=== PATIENT | female | born 1995 | race Caucasian/White ===

== ENCOUNTER 2016-09-22 06:23 | Inpatient (IN) | payer BC ==
--- NOTE | 2016-09-22 06:46 | ED ---
General Adult HPI - General Source: patient, RN notes reviewed, old records reviewed Mode of arrival: ambulatory Limitations: no limitations <Alex Pena - Last Filed: 09/22/16 06:49> <Alex Suh - Last Filed: 09/22/16 10:19> - General Chief complaint: Abdominal Pain Stated complaint: uretal obstruction Time Seen by Provider: 09/22/16 06:45 - History of Present Illness Initial comments: This is a 21-year-old female here for evaluation. Patient with a back and flank pain. Patient does have history of ureteral blockage, right sided ureteral stricture, she has follow-up with Dr. Roy. Patient has no specific fevers, no abdominal pain, no nausea vomiting. No diarrhea. No modifying factors for symptoms. No blood in her urine, able to urinate without difficulty (Alex Pena) - Related Data Home Medications Medication Instructions Recorded Confirmed HYDROcodone/APAP 7.5-325MG [[place] 1 tab PO DAILY PRN 09/22/16 09/22/16 7.5-325] Allergies Allergy/AdvReac Type Severity Reaction Status Date / Time No Known Allergies Allergy Verified 09/22/16 07:42 Review of Systems ROS Other: All systems not noted in ROS Statement are negative. <Alex Pena - Last Filed: 09/22/16 06:49> ROS Other: All systems not noted in ROS Statement are negative. <Alex Suh - Last Filed: 09/22/16 10:19> ROS Statement: Those systems with pertinent positive or pertinent negative responses have been documented in the HPI. Past Medical History Additional Past Medical History / Comment(s): uretheral stricture, spontaneous pneumo History of Any Multi-Drug Resistant Organisms: None Reported Additional Past Surgical History / Comment(s): vats Past Psychological History: No Psychological Hx Reported Smoking Status: Never smoker Past Alcohol Use History: Occasional Past Drug Use History: None Reported <Alex Pena - Last Filed: 09/22/16 06:49> General Exam Limitations: no limitations <Alex Pena - Last Filed: 09/22/16 06:49> Medical Decision Making <Alxe Pena - Last Filed: 09/22/16 06:49> - Lab Data Result diagrams: 09/22/16 08:19 09/22/16 08:19 <Alex Suh - Last Filed: 09/22/16 10:19> - Medical Decision Making Spoke with Dr. Bautista he was willing to accept the admission I admitted the patient to Dr. Roy. (Alex Suh) - Lab Data Lab Results 09/22/16 09/22/16 09/22/16 Range/Units 06:35 06:35 08:19 WBC (3.8-10.6) k/uL RBC (3.80-5.40) m/uL Hgb (11.4-16.0) gm/dL Hct (34.0-46.0) % MCV (80.0-100.0) fL MCH (25.0-35.0) pg MCHC (31.0-37.0) g/dL RDW (11.5-15.5) % Plt Count (150-450) k/uL Neutrophils % % Lymphocytes % % Monocytes % % Eosinophils % % Basophils % % Neutrophils # (1.3-7.7) k/uL Lymphocytes # (1.0-4.8) k/uL Monocytes # (0-1.0) k/uL Eosinophils # (0-0.7) k/uL Basophils # (0-0.2) k/uL Sodium 140 (137-145) mmol/L Potassium 4.2 (3.5-5.1) mmol/L Chloride 100 (98-107) mmol/L Carbon Dioxide 25 (22-30) mmol/L Anion Gap 15 mmol/L BUN 16 (7-17) mg/dL Creatinine 0.83 (0.52-1.04) mg/dL Est GFR (MDRD) Af Amer >60 (>60 ml/min/1.73 sqM) Est GFR (MDRD) Non-Af >60 (>60 ml/min/1.73 sqM) Glucose 97 (74-99) mg/dL Calcium 9.9 (8.4-10.2) mg/dL Total Bilirubin 0.9 (0.2-1.3) mg/dL AST 22 (14-36) U/L ALT 34 (9-52) U/L Alkaline Phosphatase 68 (38-126) U/L Total Protein 7.6 (6.3-8.2) g/dL Albumin 4.6 (3.5-5.0) g/dL Amylase 31 (30-110) U/L Lipase 30 (23-300) U/L Urine Color Light Yellow Urine Appearance Turbid H (Clear) Urine pH 7.5 (5.0-8.0) Ur Specific [place] 1.013 (1.001-1.035) Urine Protein 2+ H (Negative) Urine Glucose (UA) Negative (Negative) Urine Ketones 3+ H (Negative) Urine Blood Small H (Negative) Urine Nitrate Negative (Negative) Urine Bilirubin Negative (Negative) Urine Urobilinogen <2.0 (<2.0) mg/dL Ur Leukocyte Esterase Large H (Negative) Urine RBC 62 H (0-5) /hpf Urine WBC >182 H (0-5) /hpf Ur Squamous Epith Cells 3 (0-4) /hpf Urine HCG, Qual Not Detected (Not Detectd) 09/22/16 Range/Units 08:19 WBC 10.8 H (3.8-10.6) k/uL RBC 4.50 (3.80-5.40) m/uL Hgb 13.8 (11.4-16.0) gm/dL Hct 41.0 (34.0-46.0) % MCV 91.2 (80.0-100.0) fL MCH 30.6 (25.0-35.0) pg MCHC 33.5 (31.0-37.0) g/dL RDW 12.4 (11.5-15.5) % Plt Count 281 (150-450) k/uL Neutrophils % 90 % Lymphocytes % 5 % Monocytes % 4 % Eosinophils % 0 % Basophils % 0 % Neutrophils # 9.7 H (1.3-7.7) k/uL Lymphocytes # 0.5 L (1.0-4.8) k/uL Monocytes # 0.4 (0-1.0) k/uL Eosinophils # 0.0 (0-0.7) k/uL Basophils # 0.0 (0-0.2) k/uL Sodium (137-145) mmol/L Potassium (3.5-5.1) mmol/L Chloride (98-107) mmol/L Carbon Dioxide (22-30) mmol/L Anion Gap mmol/L BUN (7-17) mg/dL Creatinine (0.52-1.04) mg/dL Est GFR (MDRD) Af Amer (>60 ml/min/1.73 sqM) Est GFR (MDRD) Non-Af (>60 ml/min/1.73 sqM) Glucose (74-99) mg/dL Calcium (8.4-10.2) mg/dL Total Bilirubin (0.2-1.3) mg/dL AST (14-36) U/L ALT (9-52) U/L Alkaline Phosphatase (38-126) U/L Total Protein (6.3-8.2) g/dL Albumin (3.5-5.0) g/dL Amylase (30-110) U/L Lipase (23-300) U/L Urine Color Urine Appearance (Clear) Urine pH (5.0-8.0) Ur Specific [place] (1.001-1.035) Urine Protein (Negative) Urine Glucose (UA) (Negative) Urine Ketones (Negative) Urine Blood (Negative) Urine Nitrate (Negative) Urine Bilirubin (Negative) Urine Urobilinogen (<2.0) mg/dL Ur Leukocyte Esterase (Negative) Urine RBC (0-5) /hpf Urine WBC (0-5) /hpf Ur Squamous Epith Cells (0-4) /hpf Urine HCG, Qual (Not Detectd) Disposition <Alex Pena - Last Filed: 09/22/16 06:49> Time of Disposition: 10:19 <Alex Suh - Last Filed: 09/22/16 10:19> Clinical Impression: Hydronephrosis, Urinary tract infection Disposition: ADMITTED IP TO THIS HOSP
[2016-09-22] MEDS ORDERED: MORPHINE SULFATE 4 MG/ML SYRINGE IV STA (06:50)
[2016-09-22] MEDS ORDERED: SODIUM CHLORIDE 0.9% 1,000 ML IV STA (06:50)
[2016-09-22] MEDS ORDERED: SODIUM CHLORIDE 0.9% 500 ML IV STA (06:50)
[2016-09-22 06:58] LABS: Appearance,Urine Turbid (Clear); Bilirubin,Urine Negative (Negative); Glucose,Urine (UA) Negative (Negative); Ketones,Urine 3+ (Negative); Leukocyte Esterase,Urine Large (Negative); Nitrite,Urine Negative (Negative); PH, Urine 7.5 (5.0-8.0); Particle Count 6826; Protein,Urine 2+ (Negative); RBC,Urine 62 /hpf (0-5); Specific Gravity,Urine 1.013 (1.001-1.035); Squamous Epithelial Cell,Urine 3 /hpf (0-4); UA Billing (MACRO vs. MICRO) MICRO; Urobilinogen,Urine <2.0 mg/dL (<2.0); WBC,Urine >182 /hpf (0-5)
[2016-09-22 08:27] LABS: Basophils % (A) 0 %; CH 31.5; CHCM 34.6; Eosinophils % (A) 0 %; HDW 2.35; HGB 13.8 gm/dL (11.4-16.0); Luc # (Auto) 0.08; Luc % (Auto) 1; Lymphocytes # (A) 0.5 k/uL (1.0-4.8); Lymphocytes % (A) 5 %; MCH 30.6 pg (25.0-35.0); MCHC 33.5 g/dL (31.0-37.0); MCV 91.2 fL (80.0-100.0); Mean Platelet Volume 7.4; Monocytes # (A) 0.4 k/uL (0-1.0); Monocytes % (A) 4 %; Neutrophils # (A) 9.7 k/uL (1.3-7.7); Neutrophils % (A) 90 %; RDW 12.4 % (11.5-15.5); WBC 10.8 k/uL (3.8-10.6); WBC (Perox) 10.95
[2016-09-22 08:41] LABS: ALT 34 U/L (9-52); AST 22 U/L (14-36); Alkaline Phosphatase 68 U/L (38-126); Amylase 31 U/L (30-110); Anion Gap 15 mmol/L; Blood Urea Nitrogen 16 mg/dL (7-17); Calcium 9.9 mg/dL (8.4-10.2); Carbon Dioxide 25 mmol/L (22-30); Chloride 100 mmol/L (98-107); Glucose 97 mg/dL (74-99); Non-African American GFR(MDRD) >60 (>60 ml/min/1.73 sqM); Potassium 4.2 mmol/L (3.5-5.1); Sodium 140 mmol/L (137-145); Total Bilirubin 0.9 mg/dL (0.2-1.3); Total Protein 7.6 g/dL (6.3-8.2)
--- NOTE | 2016-09-22 09:09 | US ---
EXAMINATION TYPE: US renals and bladder DATE OF EXAM: 09/22/2016 8:49 AM COMPARISON: NONE CLINICAL HISTORY: Pain. rt flank pain EXAM MEASUREMENTS: Right Kidney: 10.9 x 4.5 x 4.8 cm Left Kidney: 12.5 x 5.6 x 4.6 cm Findings: Right Kidney: moderate/severe hydronephrosis. Medial cystic lesion= 8.0 x 7.3 x 5.7 cm Left Kidney: wnl Bladder: distended, wnl Left Jet seen: No nephrolithiasis. IMPRESSION: Moderate to severe right hydronephrosis. Largest cystic lesion involving the right kidney noted measu ring 8 cm and appears to have a simple appearance.
[2016-09-22] MEDS ORDERED: KETOROLAC 60 MG/2 ML VIAL IVP STA (10:19)
[2016-09-22] MEDS ORDERED: HYDROmorphone 1 MG/ML 1 ML SYRINGE IVP STA (10:19)
[2016-09-22] MEDS ORDERED: ONDANSETRON 4 MG/2 ML VIAL IVP STA (10:19)
[2016-09-22] MEDS ORDERED: HYDROmorphone 1 MG/ML 1 ML SYRINGE IVP PRN (10:20)
[2016-09-22] MEDS ORDERED: ONDANSETRON 4 MG/2 ML VIAL IVP PRN (10:21)
[2016-09-22] MEDS: SODIUM CHLORIDE 0.9% 1,000 ML IV ONE ×2 (10:41→22:10)
[2016-09-22] MEDS ORDERED: LEVOFLOXACIN 750MG-D5W PMX 750 MG in DEXTROSE/WATER 1 150ML.BAG IVPB SCH (16:00)
[2016-09-22] MEDS: KETOROLAC 30 MG/ML 1 ML VIAL IVP SCH (16:20)
[2016-09-22 22:26] VITALS: RESP 16
[2016-09-23] MEDS: KETOROLAC 30 MG/ML 1 ML VIAL IVP SCH ×2 (01:18→06:36)
[2016-09-23] MEDS: SODIUM CHLORIDE 0.9% 1,000 ML IV ONE (07:43)
--- NOTE | 2016-09-23 13:25 | P.DS ---
Providers Date of admission: 09/22/16 10:22 Expected date of discharge: 09/23/16 Attending physician: Ghanshyam Bautista Primary care physician: Stated None - Discharge Diagnosis(es) (1) Hydronephrosis Current Visit: Yes Status: Acute Priority: High Hospital Course: The patient was admitted with severe right flank pain. Ultrasound showed moderate to severe right hydronephrosis. She was treated with IV hydration and parenteral analgesics, along with Levaquin. Her pain improved significantly after receiving Toradol. She was comfortable at the time of discharge. She remained afebrile with stable vital signs. A preliminary urine culture has shown gram-negative bacilli. Pertinent Studies: Renal ultrasound showed moderate to severe right hydronephrosis. Patient Condition at Discharge: Good Plan - Discharge Summary New Discharge Prescriptions: Ciprofloxacin HCl [Cipro] 500 mg PO Q12HR #14 tablet Ketorolac [Toradol] 10 mg PO Q6HR #20 tab Discharge Medication List HYDROcodone/APAP 7.5-325MG [[place] 7.5-325] 1 tab PO DAILY PRN 09/22/16 [History] Ciprofloxacin HCl [Cipro] 500 mg PO Q12HR #14 tablet 09/23/16 [Rx] Ketorolac [Toradol] 10 mg PO Q6HR #20 tab 09/23/16 [Rx] Follow up Appointment(s)/Referral(s): None,Stated [Primary Care Provider] - 1-2 days Ghanshyam Bautista MD [STAFF PHYSICIAN] - 2 Weeks Activity/Diet/Wound Care/Special Instructions: Diet as tolerated. Activities as tolerated.
--- NOTE | 2016-09-23 13:25 | P.GSHP ---
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 I initially saw her in the office in 2012, and a nuclear renogram was ordered for evaluation of this condition. Unfortunately, the renogram was nondiagnostic. The patient was advised to undergo repeat renogram, but she moved to [place]. While there, she had another episode of right flank pain. She underwent imaging (ultrasound and computed tomography scan) which confirmed the presence of right hydronephrosis. She was treated with analgesics and her pain resolved. Last night, she was awakened with severe right flank pain. She took oral pain medication, and had an episode of emesis. She subsequently presented to the emergency room. An ultrasound showed moderate to severe right hydronephrosis, and she was admitted. She has received Toradol and her pain is now controlled. - Constitutional Constitutional: Denies chills, Denies fever - Genitourinary (Female) Genitourinary: Denies dysuria, Denies hematuria Past Medical History Additional Past Medical History / Comment(s): Right uretheral stricture, left spontaneous pneumothorax x 3, jaundice as . History of Any Multi-Drug Resistant Organisms: None Reported Additional Past Surgical History / Comment(s): Left vats with wedge resection. Past Anesthesia/Blood Transfusion Reactions: Postoperative Nausea & Vomiting ( PONV) Additional Past Anesthesia/Blood Transfusion Reaction / Comment(s): Slow to awaken. Past Psychological History: No Psychological Hx Reported Additional Psychological History / Comment(s): Pt resides alone. She is independent. Smoking Status: Never smoker Past Alcohol Use History: Occasional Past Drug Use History: None Reported - Past Family History Mother Family Medical History: No Reported History Father Family Medical History: No Reported History Medications and Allergies Home Medications Medication Instructions Recorded Confirmed Type HYDROcodone/APAP 7.5-325MG [[place] 1 tab PO DAILY PRN 09/22/16 09/22/16 History 7.5-325] Allergies Allergy/AdvReac Type Severity Reaction Status Date / Time No Known Allergies Allergy Verified 09/22/16 07:42 Surgical - Exam Vital Signs Temp Pulse Resp BP Pulse Ox 99.0 F 59 L 18 154/74 100 09/22/16 06:32 09/22/16 06:32 09/22/16 06:32 09/22/16 06:32 09/22/16 06:32 - General well developed, well nourished, no distress - Respiratory normal respiratory effort - Abdomen Abdomen: soft, tender (Mild right-sided tenderness), no guarding, no rigid, no rebound Results - Labs 09/22/16 08:19 09/22/16 08:19 - Imaging US - kidney/bladder: report reviewed Assessment and Plan (1) Hydronephrosis Status: Acute Plan: The patient is a 21-year-old white female who presents with right flank pain. She has had 2 prior similar episodes. She is receiving Toradol, and her pain is now controlled. I suspect that the hydronephrosis is due to UPJ obstruction. I had a detailed conversation with the patient regarding this. If her pain is intractable, she will require placement of a right ureteral stent. A right retrograde pyelogram will be performed at that time, and would likely confirm the presence of UPJ obstruction. However, if her symptoms are tolerable, it would be my preference not to place a stent but instead to obtain a Lasix renogram. This will assess the function and drainage of the right kidney. The rationale for this approach was discussed in detail with the patient, and she is agreeable to this. She will be made nothing by mouth after midnight in the event that she has intractable symptoms tomorrow morning. However, if she is feeling well overnight and tomorrow, she will likely be discharged home on oral antibiotics, pending the urine culture, as urinalysis is suggestive of a possible UTI. Time with Patient: Greater than 30
[2016-09-23 13:27] VITALS: BP 123/69; PULSE 72; TEMP 97.5
[2016-09-23 13:55] VITALS: BMI 18.4
[2016-09-23] MEDS ORDERED: LEVOFLOXACIN 750 MG TAB PO SCH (16:00)
== END 2016-09-23 13:47 | disposition home or self-care (01) | DRG 690 ==
LOC: EC 06:23 → 6PED 10:22
PROVIDERS: ADMIT Urology; ATTEND Urology
DX: N13.6 Pyonephrosis (principal)
CPT/HCPCS: 36415; 76770; 80053; 81001; 81025; 82150; 83690; 85025; 87077; 87086; 87186; 87491; 87591; 96361; 96374; 96375; 99285

== ENCOUNTER → 2016-10-15 | Outpatient (CLI) | payer BC ==
[~2016-10-15] MED LIST: FUROSEMIDE 10 MG/ML 2 ML VIAL IV ONE
--- NOTE | 2016-10-15 17:19 | NM ---
EXAMINATION TYPE: NM lasix renogram DATE OF EXAM: 10/15/2016 3:15 PM COMPARISON: NONE HISTORY: Following administration of 10.4 mCi Tc 99m MAG3 with 20mg Lasix. Immediate images post injection FINDINGS: Left: 90%. Right: 10%. Max renal flow left: 3 minutes. Max renal flow right: Abnormal curve. Satisfactory accumulation of radiotracer within both renal collecting systems. After the administrati on of Lasix, there is prompt excretion from left renal collecting system. T 1/2 left: 20 minutes. T 1/2 right: Abnormal curve IMPRESSION: 1. High-grade obstruction with abnormal renal curves on the right. Little flow within the right kidne y is identified findings are compatible with atrophy and/or obstruction. Renal curves on the right ar e abnormal. 2. Left kidney function appears normal.
== END | disposition home or self-care (01) ==
LOC: RADNMMAIN 14:05
PROVIDERS: ATTEND Physician Assistant
DX: N13.9 Obstructive and reflux uropathy, unspecified (principal); N13.30 Unspecified hydronephrosis
CPT/HCPCS: 78708; A9562; J1940

== ENCOUNTER → 2018-07-06 | Outpatient (CLI) | payer BC ==
--- NOTE | 2018-07-07 07:46 | USB ---
Reason for exam: clinical finding. History: Family history of breast cancer in grandfather at age 55. Physical Findings: Nurse Summary: firm movable nodule (nurse judith). US Breast LT Left complete breast ultrasound includes all four quadrants, the retroareolar region and axilla. Finding demonstrates no cystic or solid lesion seen. Palpable area at 9 o'clock zone B/C. Prominent underlying rib is seen. These results were verbally communicated with the patient and result sheet given to the patient on 07/06/18. ASSESSMENT: Negative, BI-RAD 1 RECOMMENDATION: Routine screening mammogram of both breasts at age 38. Manage on a clinical basis with regard to any suspicious palpable areas.
== END | disposition home or self-care (01) ==
LOC: RADUSWWP 15:38
PROVIDERS: ATTEND Family Medicine
DX: N63.20 Unspecified lump in the left breast, unspecified quadrant (principal)

== ENCOUNTER 2019-08-28 06:09 | Inpatient (IN) | payer OTHER ==
[2019-08-28] MEDS ORDERED: CARBOPROST TROMETHAMINE 250 MCG/ML 1 ML AMP IM PRN (06:22)
[2019-08-28] MEDS ORDERED: TERBUTALINE 1 MG/ML VIAL SQ PRN (06:22)
[2019-08-28] MEDS ORDERED: METHYLERGONOVINE 0.2 MG/ML 1 ML AMP IM PRN (06:22)
[2019-08-28] MEDS ORDERED: LIDOCAINE 0.5% (PF) 5 MG/ML (50 ML SDV) SQ PRN (06:22)
[2019-08-28] MEDS ORDERED: OXYTOCIN 10 UNIT/ML 1 ML VIAL IM PRN (06:22)
[2019-08-28 06:28] VITALS: RESP 16
[2019-08-28 06:28] LABS: Glucose,Whole Blood 80 mg/dL (75-99)
[2019-08-28] MEDS: LACTATED RINGERS 1,000 ML IV SCH ×3 (06:29→13:51)
[2019-08-28] MEDS ORDERED: OXYTOCIN 30 UNITS/500 ML NS 30 UNIT in SALINE 1 500ML.BAG IV SCH (06:30)
[2019-08-28 06:40] LABS: Basophils % (A) 0 %; Eosinophils # (A) 0.1 k/uL (0-0.7); Eosinophils % (A) 1 %; HCT 36.9 % (34.0-46.0); HGB 12.8 gm/dL (11.4-16.0); Lymphocytes # (A) 1.9 k/uL (1.0-4.8); Lymphocytes % (A) 23 %; MCHC 34.7 g/dL (31.0-37.0); MCV 92.1 fL (80.0-100.0); Mean Platelet Volume 10.8; Monocytes # (A) 0.4 k/uL (0-1.0); Monocytes % (A) 5 %; Neutrophils # (A) 5.6 k/uL (1.3-7.7); Neutrophils % (A) 68 %; Platelet Count 186 k/uL (150-450); RDW 12.5 % (11.5-15.5); WBC 8.2 k/uL (3.8-10.6)
--- NOTE | 2019-08-28 08:28 | P.HPOB ---
History of Present Illness H&P Date: 08/28/19 This is a 24 rolled white female 1 para 0 EDC 09/01/2019 at 39-3/7 weeks' gestation. Patient presents today for induction for elevated proteinuria and reasonably favorable multiparous cervix. Most recent 24 hour urine revealed elevated protein, patient has a history of renal disease with 1 kidney already removed. In addition she has gestational diabetes, home blood sugars have been in the normal range. She denies fluid leakage or vaginal bleeding. Fetus is been active throughout the . Blood sugar this morning 80. Past medical history is significant for spontaneous tension pneumothorax in the past. Past surgical history kidney removed 2017, thoracotomy 2008. Current medications vitamins. ALLERGIES none known. Family history significant for hypertension. 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 history is significant for elevated proteinuria followed each trimester with 24 hour urine. Blood type O positive, rubella status immune. VDRL testing, urine culture, hepatitis B surface antigen, HIV testing, gonorrhea and chlamydia cultures all negative. Estimated weight 23rd percentile. One- hour Glucola 220, three-hour GTT consistent with gestational diabetes. On exam this is a pleasant white female who is 5 foot 10 inches, 157 pounds, blood pressure 124/88, pulse 107 on admission. The general physical exam is within normal limits. Cervix is 3 cm dilated, 70% effaced, -1 station, vertex presentation. Artificial amniorrhexis reveals clear fluid. heart rate is consistent with reactive NST with a baseline in the 140s. Impression: 39-3/7 weeks, gestational diabetes with good sugar control, proteinuria, history of nephrectomy. Here for induction of labor. Plan: Continue close maternal and surveillance. Oxytocin per hospital p rotocol. Analgesic options reviewed. Anticipate normal spontaneous vaginal delivery. Review of Systems Constitutional: Reports as per HPI Past Medical History Additional Past Medical History / Comment(s): Right uretheral stricture, left spontaneous pneumothorax x 3, jaundice as . GDM 06/14/19 History of Any Multi-Drug Resistant Organisms: None Reported Additional Past Surgical History / Comment(s): Left vats with wedge resection., Right kidney removed Past Anesthesia/Blood Transfusion Reactions: Postoperative Nausea & Vomiting (PONV) Additional Past Anesthesia/Blood Transfusion Reaction / Comment(s): Slow to awaken. Past Psychological History: No Psychological Hx Reported Additional Psychological History / Comment(s): Pt resides alone. She is independent. Smoking Status: Never smoker Past Alcohol Use History: Occasional Past Drug Use History: None Reported - Past Family History Mother Family Medical History: No Reported History Father Family Medical History: No Reported History Medications and Allergies Home Medications Medication Instructions Recorded Confirmed Type Pnv No.95/Ferrous Fum/Folic AC 1 each PO DAILY 08/28/19 08/28/19 History [ Multivitamin Tablet] Allergies Allergy/AdvReac Type Severity Reaction Status Date / Time No Known Allergies Allergy Verified 08/28/19 06:22 Exam Vital Signs Temp Pulse Resp BP 08/28/19 06:24 97.8 F 101 H 16 124/88 Intake and Output 08/27/19 08/28/19 08/28/19 22:59 06:59 14:59 Other: Weight 71.214 kg See dictation under HPI please Results Result Diagrams: 08/28/19 06:30 Assessment and Plan Assessment: 39-3/7 weeks intrauterine , history of nephrectomy with proteinuria noted, gestational diabetes with good blood sugar control. Plan: Oxytocin per hospital protocol. Continue close maternal and surveillance. Anticipate normal spontaneous vaginal delivery. Time with Patient: Less than 30
[2019-08-28] MEDS ORDERED: ROPIVACAINE 100 MG, fentaNYL (PF) 200 MCG in SODIUM CHLORIDE 0.9% 76 ML EPIDURAL ONE (14:31)
[2019-08-28] MEDS ORDERED: ZOLPIDEM 5 MG TAB PO PRN (16:07)
[2019-08-28] MEDS ORDERED: BENZOCAINE/MENTHOL SPRAY 1 GM/SPRAY AEROSOL TOPICAL PRN (16:07)
[2019-08-28] MEDS ORDERED: diphenhydrAMINE 50 MG CAP PO PRN (16:07)
[2019-08-28] MEDS ORDERED: IBUPROFEN 600 MG TAB PO PRN (16:07)
[2019-08-28] MEDS ORDERED: HYDROCORTISONE 2.5% RECTAL CREAM 30 GM TUBE RECTAL PRN (16:07)
[2019-08-28] MEDS ORDERED: SIMETHICONE 80 MG CHEWABLE PO PRN (16:07)
[2019-08-28] MEDS ORDERED: ACETAMINOPHEN TAB 325 MG TAB PO PRN (16:07)
[2019-08-28] MEDS ORDERED: LANOLIN CREAM 5 GM TUBE TOPICAL PRN (16:07)
[2019-08-28] MEDS ORDERED: diphenhydrAMINE 50 MG/ML 1 ML VIAL IVP PRN ×2 (16:07)
[2019-08-28] MEDS ORDERED: diphenhydrAMINE 25 MG CAP PO PRN (16:07)
[2019-08-28] MEDS ORDERED: WITCH HAZEL 1 EACH MED..PAD TOPICAL PRN (16:07)
--- NOTE | 2019-08-28 16:07 | P.PROBDLV ---
Vaginal Delivery Note - . Vaginal Delivery Note: This is a 24 rolled white female 1 para 0 EDC 09/01/2019 at 39-3/7 weeks' gestation. Patient presented for induction for a history of nephrectomy, and increasing proteinuria with reasonably favorable cervix. is remarkable for gestational diabetes, diet controlled, blood sugar on admission 80. [place] strep cultures negative. Rubella status immune. Please see admitting H&P for details. Patient patient was 2-3 cm dilated, 70% effaced, -1 station, soft, anterior. Artificial amniorrhexis revealed clear fluid. Oxytocin was started and titrated per hospital protocol. She progressed well through the first stage of labor and requested an epidural which was placed. She became completely dilated at 1514 hours and began the second stage of labor at that time. The perineal body was prepped and draped in usual sterile fashion. Excellent maternal expulsive effort was employed. Infant's head delivered occiput anterior and she restituted accordingly. There was no nuchal cord noted. The left or anterior shoulder was delivered from underneath the pubic symphysis at which time the oropharynx, nasopharynx, and external nares were all bulb suctioned. Patient was officially delivered of a liveborn female at 15 47 hours. Umbilical cord was doubly clamped and ligated, she was handed to waiting nurses for evaluation where scores of 9 and 9 at one and 5 minutes respectively were given. Placenta delivered spontaneously, it was inspected and noted to be intact with trivascular cord at 1550 hours. Uterus is massaged. It is firm and in the midline, 16-18 week size. Inspection of the cervix, vagina, perineum, periurethral, and perirectal areas revealed a small first-degree perineal laceration on the anterior aspect of both labia minora. These are each repaired with a single [id number] suture of 3-0 Vicryl suture. weighs 2882 g or 6 lbs. 3 oz. The patient and her family are allowed to begin the bonding experience in the LDR.
[2019-08-28] MEDS ORDERED: OXYTOCIN 20 UNITS/1000 ML NS 1,000 ML IV SCH (16:15)
[2019-08-28] MEDS: SENNOSIDES-DOCUSATE SODIUM 1 EACH TAB PO SCH (19:58)
[2019-08-29 06:16] LABS: Basophils % (A) 0 %; Eosinophils # (A) 0.1 k/uL (0-0.7); Eosinophils % (A) 1 %; HCT 33.7 % (34.0-46.0); HGB 11.5 gm/dL (11.4-16.0); Lymphocytes # (A) 1.4 k/uL (1.0-4.8); Lymphocytes % (A) 15 %; MCH 31.9 pg (25.0-35.0); MCHC 34.1 g/dL (31.0-37.0); MCV 93.7 fL (80.0-100.0); Monocytes # (A) 0.6 k/uL (0-1.0); Monocytes % (A) 6 %; Neutrophils # (A) 7.1 k/uL (1.3-7.7); Neutrophils % (A) 76 %; Platelet Count 169 k/uL (150-450); RBC 3.59 m/uL (3.80-5.40); RDW 12.5 % (11.5-15.5); WBC 9.4 k/uL (3.8-10.6)
--- NOTE | 2019-08-29 07:17 | P.DS ---
Providers Date of admission: 08/28/19 06:09 Expected date of discharge: 08/29/19 Attending physician: Bridgett Brink Primary care physician: Stated None Hospital Course: This is a 24 rolled white female 1 para 0 EDC 09/01/2019 at 39-3/7 weeks' gestation. Patient presented for induction for increasing proteinuria, nephrectomy performed 2 years ago. otherwise unremarkable, rubella status immune, blood type O+, group B strep cultures negative. Please see dictated history and physical for details. is also remarkable for gestational diabetes, excellent blood sugar control on diet, admitting blood sugar 80. Patient received an epidural per her request. Oxytocin was started and titrated per hospital protocol. She went on to swiftly deliver a liveborn female with scores of 9 and 9 at one and 5 minutes respectively. Infant weighed 6 lbs. 3 oz. or 2882 g. There were 2 small first-degree lacerations on either labia minora that were easily repaired with [id number] sutures. Estimated blood loss 300 mL's. Please see dictated delivery note for details. This morning the patient is doing well. She is voiding, ambulating and passing flatus without difficulty. Vital signs are stable and she is afebrile. Fundus is firm and in the midline, symmetric and 18 week size. Extremities are negative for edema. Breasts are not engorged, breast-feeding is going well. I have given her prescription for a double electric breast pump per her request. Patient is judged to be in very good condition for discharge home. She will follow-up in the office with me in 6 weeks. I reminded her no intercourse, tampons or douching. She will use [id number] acetaminophen, 1000 mg every 4-6 hours as needed. She will call with any fevers shakes or chills, foul smelling or copious lochia, with the passage of large blood clots. She will call with any pain not alleviated by [id number] products. We have briefly discussed options for contraception and we will review this further in the office at the 6 week visit. Patient Condition at Discharge: Good Plan - Discharge Summary Discharge Rx Participant: No New Discharge Prescriptions: No Action Pnv No.95/Ferrous Fum/Folic AC [ Multivitamin Tablet] 1 each PO DAILY Discharge Medication List Pnv No.95/Ferrous Fum/Folic AC [ Multivitamin Tablet] 1 each PO DAILY 08/28/19 [History] Follow up Appointment(s)/Referral(s): Bridgett Brink MD [STAFF PHYSICIAN] - 6 Weeks Discharge Disposition: HOME SELF-CARE
[2019-08-29] MEDS: SENNOSIDES-DOCUSATE SODIUM 1 EACH TAB PO SCH (07:55)
[2019-08-29 16:17] VITALS: BP 129/79; PULSE 74; TEMP 98.2
== END 2019-08-29 17:30 | disposition home or self-care (01) | DRG 807 ==
LOC: 4FBP 06:09
PROVIDERS: ADMIT Obstetrics & Gynecology; ATTEND Obstetrics & Gynecology
PROC: 00HU33Z Insertion of Infusion Device into Spinal Canal, Percutaneous Approach (ICD-10-PCS; principal; 2019-08-28)
PROC: 0HQ9XZZ Repair Perineum Skin, External Approach (ICD-10-PCS; principal; 2019-08-28)
PROC: 3E0R3BZ Introduction of Anesthetic Agent into Spinal Canal, Percutaneous Approach (ICD-10-PCS; principal; 2019-08-28)
PROC: 10E0XZZ Delivery of Products of Conception, External Approach (ICD-10-PCS; principal; 2019-08-28)
DX: O24.420 Gestational diabetes mellitus in childbirth, diet controlled (principal); Z37.0 Single live birth; O70.0 First degree perineal laceration during delivery; O12.14 Gestational proteinuria, complicating childbirth; Z3A.39 39 weeks gestation of pregnancy; Z82.49 Family history of ischemic heart disease and other diseases of the circulatory system; Z90.5 Acquired absence of kidney
CPT/HCPCS: 85025; 86850; 86900; 86901

== ENCOUNTER 2021-01-03 09:15 | Outpatient (CLI) | payer OTHER ==
[2021-01-03 09:29] VITALS: BP 123/75; PULSE 91; RESP 14
[2021-01-03 10:02] VITALS: TEMP 96.6
== END 2021-01-03 10:03 | disposition home or self-care (01) ==
LOC: FBPOP 09:15
PROVIDERS: ATTEND Obstetrics & Gynecology
DX: O24.419 Gestational diabetes mellitus in pregnancy, unspecified control (principal); Z3A.00 Weeks of gestation of pregnancy not specified
CPT/HCPCS: 59025

== ENCOUNTER 2021-01-28 06:10 | Inpatient (IN) | payer OTHER ==
[2021-01-28] MEDS ORDERED: OXYTOCIN 10 UNIT/ML 1 ML VIAL IM PRN (06:31)
[2021-01-28] MEDS ORDERED: TERBUTALINE 1 MG/ML VIAL SQ PRN (06:31)
[2021-01-28] MEDS ORDERED: LIDOCAINE 0.5% (PF) 5 MG/ML (50 ML SDV) SQ PRN (06:31)
[2021-01-28] MEDS ORDERED: METHYLERGONOVINE 0.2 MG/ML 1 ML AMP IM PRN (06:31)
[2021-01-28] MEDS: LACTATED RINGERS 1,000 ML IV SCH ×3 (06:31→10:53)
[2021-01-28] MEDS ORDERED: CARBOPROST TROMETHAMINE 250 MCG/ML 1 ML AMP IM PRN (06:31)
[2021-01-28] MEDS ORDERED: OXYTOCIN 30 UNITS/500 ML NS 30 UNIT in SALINE 1 500ML.BAG IV SCH (06:45)
[2021-01-28 06:53] LABS: Basophils % (A) 0 %; Eosinophils # (A) 0.1 k/uL (0-0.7); Eosinophils % (A) 1 %; HCT 35.7 % (34.0-46.0); HGB 12.3 gm/dL (11.4-16.0); Lymphocytes # (A) 2.6 k/uL (1.0-4.8); Lymphocytes % (A) 35 %; MCH 31.2 pg (25.0-35.0); MCHC 34.4 g/dL (31.0-37.0); MCV 90.6 fL (80.0-100.0); Mean Platelet Volume 10.5; Monocytes # (A) 0.4 k/uL (0-1.0); Monocytes % (A) 5 %; Neutrophils # (A) 4.2 k/uL (1.3-7.7); Neutrophils % (A) 56 %; Platelet Count 163 k/uL (150-450); RBC 3.94 m/uL (3.80-5.40); RDW 12.3 % (11.5-15.5); WBC 7.4 k/uL (3.8-10.6)
[2021-01-28] MEDS ORDERED: PENICILLIN G POTASSIUM 5,000,000 UNIT in DEXTROSE 5% IN WATER 100 ML IVPB ONE ×2 (07:00)
--- NOTE | 2021-01-28 07:15 | P.HPOB ---
History of Present Illness H&P Date: 01/28/21 Chief Complaint: For elective induction of labor with favorable multiparous cervix This is a 26-year-old female 3 para 1011 EDC 02/04/2021 at 39 weeks gestation who presents for induction of labor with favorable multiparous cervix. She denies vaginal bleeding or fluid leakage. Fetus is been active throughout the . Past surgical history significant for wisdom teeth extraction, nephrectomy 2018, thoracotomy 2008. Current medications vitamins daily. ALLERGIES none known. Family history significant for hypertension. Past medical history is significant for spontaneous pneumothorax in 2008. 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 Obstetric history blood type is O+, rubella status immune. Urine culture, hepatitis B surface antigen, HIV testing, gonorrhea and chlamydia cultures all negative. Gestational diabetes is noted. Group B strep cultures positive. On exam patient is 5 foot 9 inches, 160 pounds, vital signs are stable and she is afebrile. General physical exam is within normal limits. Cervix is 4 cm dilated, 80% effaced, -1 station, vertex presentation. Artificial amniorrhexis reveals clear fluid. heart rate is consistent with reactive NST. Impression: 39 week intrauterine , here for induction of labor, all signs reassuring. Plan: Analgesic options reviewed. Oxytocin per hospital protocol. Penicillin G per hospital protocol. Continue close maternal and surveillance. Anticipate normal spontaneous vaginal delivery. Review of Systems Constitutional: Reports as per HPI Past Medical History Additional Past Medical History / Comment(s): Right uretheral stricture, left spontaneous pneumothorax x 3, hx GDM History of Any Multi-Drug Resistant Organisms: None Reported Additional Past Surgical History / Comment(s): Left vats with wedge resection., Right kidney removed Past Anesthesia/Blood Transfusion Reactions: Postoperative Nausea & Vomiting (PONV) Additional Past Anesthesia/Blood Transfusion Reaction / Comment(s): Slow to awaken. Past Psychological History: No Psychological Hx Reported Smoking Status: Never smoker Past Drug Use History: None Reported - Past Family History Mother Family Medical History: No Reported History Father Family Medical History: No Reported History Medications and Allergies Home Medications Medication Instructions Recorded Confirmed Type Pnv No.95/Ferrous Fum/Folic AC 1 each PO DAILY 08/28/19 01/28/21 History [ Multivitamin Tablet] Allergies Allergy/AdvReac Type Severity Reaction Status Date / Time No Known Allergies Allergy Verified 01/28/21 06:30 Exam Vital Signs Temp Pulse Resp BP Pulse Ox 01/28/21 06:48 97.6 F 98 18 136/89 99 Intake and Output 01/27/21 01/28/21 01/28/21 22:59 06:59 14:59 Other: Weight 72.575 kg See dictation under HPI please Results Result Diagrams: 01/28/21 06:25 Assessment and Plan Assessment: 39 week intrauterine , gestational diabetes, positive group B strep cultures, here for induction of labor, favorable cervix, all signs reassuring. Plan: Oxytocin per hospital protocol. Penicillin G per hospital protocol. Close maternal and surveillance. Anticipate normal spontaneous vaginal delivery. Time with Patient: Less than 30
[2021-01-28 07:16] LABS: Glucose,Whole Blood 77 mg/dL (75-99)
[2021-01-28] MEDS ORDERED: fentaNYL (PF) 50 MCG/ML 5 ML AMP ONE (10:29)
[2021-01-28] MEDS ORDERED: SODIUM CHLORIDE 0.9% 100 ML BAG ONE (10:29)
[2021-01-28] MEDS ORDERED: ROPIVACAINE 5MG/ML 20ML VIAL ONE (10:29)
[2021-01-28] MEDS ORDERED: PENICILLIN G POTASSIUM 2,500,000 UNIT in DEXTROSE 5% IN WATER 100 ML IVPB SCH ×2 (11:00)
[2021-01-28] MEDS ORDERED: HYDROCORTISONE 2.5% RECTAL CREAM 30 GM TUBE RECTAL PRN (12:45)
[2021-01-28] MEDS ORDERED: ZOLPIDEM 5 MG TAB PO PRN (12:45)
[2021-01-28] MEDS ORDERED: diphenhydrAMINE 50 MG CAP PO PRN (12:45)
[2021-01-28] MEDS ORDERED: LANOLIN CREAM 5 GM TUBE TOPICAL PRN (12:45)
[2021-01-28] MEDS ORDERED: BENZOCAINE/MENTHOL SPRAY 1 GM/SPRAY AEROSOL TOPICAL PRN (12:45)
[2021-01-28] MEDS ORDERED: diphenhydrAMINE 50 MG/ML 1 ML VIAL IVP PRN ×2 (12:45)
[2021-01-28] MEDS ORDERED: SIMETHICONE 80 MG CHEWABLE PO PRN (12:45)
[2021-01-28] MEDS ORDERED: diphenhydrAMINE 25 MG CAP PO PRN (12:45)
[2021-01-28] MEDS ORDERED: ACETAMINOPHEN TAB 325 MG TAB PO PRN (12:45)
--- NOTE | 2021-01-28 12:45 | P.PROBDLV ---
Vaginal Delivery Note - . Vaginal Delivery Note: This is a 26-year-old female 3 para 1011 EDC 02/04/2021 at 39 weeks gestation. Patient presented this morning for induction of labor with favorable multiparous cervix. Positive group B strep cultures, 2 doses of penicillin received. Rubella status immune, blood type O positive, blood sent to the lab after delivery. Please see dictated history and physical for details. Artificial amniorrhexis revealed clear fluid. Oxytocin was started and titrated per hospital protocol. As noted above, 2 doses of penicillin were given per protocol. Epidural was requested and placed without difficulties. Patient progressed well to the first stage of labor and became completely dilated at 1213 hours. The perineal body was prepped and draped in usual sterile fashion. She began the second stage of labor at that time. With excellent maternal expulsive efforts the infant's head delivered occiput anterior and he restituted accordingly. The left or anterior shoulder was easily delivered from underneath the pubic symphysis at which time the oropharynx, nasopharynx, and external nares were all bulb suctioned. Patient was officially delivered of a liveborn male at 1221 hours. Umbilical cord was doubly clamped and ligated, he was handed to waiting nurses for evaluation where scores of 9 and 10 at one and 5 minutes respectively were given. Cord blood was sent to the lab for O+ blood type. Placenta delivered spontaneously with active management, it was inspected and noted to be intact with trivascular cord at 1224 hours. At this time careful inspection of the cervix, vagina, perineum, periurethral, and perirectal areas revealed a first-degree laceration at 6:00 along with a first-degree periurethral laceration. Both were injected with 1% lidocaine and repaired easily with 3-0 repeat suture. Good reapproximation was noted. weighed 7 lbs. 5 oz. or 3315 g. Total estimated blood loss 250 mL's. Patient is requesting circumcision for her son.
[2021-01-28] MEDS: IBUPROFEN 600 MG TAB PO SCH ×2 (13:11→21:37)
[2021-01-28] MEDS: SENNOSIDES-DOCUSATE SODIUM 1 EACH TAB PO SCH (21:37)
[2021-01-29] MEDS: IBUPROFEN 600 MG TAB PO SCH ×3 (00:46→07:45)
[2021-01-29 06:50] LABS: Basophils % (A) 0 %; Eosinophils # (A) 0.1 k/uL (0-0.7); Eosinophils % (A) 1 %; HCT 32.4 % (34.0-46.0); HGB 11.3 gm/dL (11.4-16.0); Lymphocytes # (A) 2.4 k/uL (1.0-4.8); Lymphocytes % (A) 29 %; MCV 91.3 fL (80.0-100.0); Mean Platelet Volume 11.1; Monocytes # (A) 0.4 k/uL (0-1.0); Monocytes % (A) 5 %; Neutrophils # (A) 5.4 k/uL (1.3-7.7); Neutrophils % (A) 64 %; Platelet Count 135 k/uL (150-450); RBC 3.55 m/uL (3.80-5.40); RDW 12.4 % (11.5-15.5); WBC 8.4 k/uL (3.8-10.6)
[2021-01-29] MEDS: SENNOSIDES-DOCUSATE SODIUM 1 EACH TAB PO SCH (07:45)
[2021-01-29 07:58] VITALS: BP 105/61; PULSE 80; RESP 16; TEMP 98
--- NOTE | 2021-01-29 09:12 | P.DS ---
Providers Date of admission: 01/28/21 06:10 Expected date of discharge: 01/29/21 Attending physician: Bridgett Brink Primary care physician: Stated None Hospital Course: This is a 26-year-old female 3 para 1011 EDC 02/04/2021 at 39 weeks gestation. Patient presented yesterday for induction of labor with favorable multiparous cervix, rubella status immune, blood type O positive, group B strep cultures positive. Please see dictated history and physical for details. Oxytocin was started and titrated per protocol. Penicillin G was given 2 doses per protocol. Patient went on to swiftly deliver vaginally a liveborn male with scores of 9 and 10 at one and 5 minutes respectively. He weighed 3315 g or 7 lbs. 5 oz. There was a small first-degree perineal laceration easily repaired. Estimated blood loss 250 mL's. Please see my dictated delivery note for details. This morning the patient is doing very well. She is voiding, ambulating, passing flatus without difficulty. Vital signs are stable and she is midline, symmetric and 18 week size. Extremities are negative for edema. [place] circumcision has been performed and he is doing well also. Patient is judged to be in excellent condition for discharge home. She will follow-up with me in the office in 6 weeks. I have reminded her no intercourse, tampons or douching. She will use ripp-[id number] extra strength Tylenol as needed for pain. A breast pump has been written and field. Patient will call with any fevers shakes or chills, foul smelling or copious lochia, with the passage of large blood clots, with any pain not alleviated by over-the- counter products, or indeed with any concerns. Assessment: Doing very well day #1 Patient Condition at Discharge: Good Plan - Discharge Summary Discharge Rx Participant: No New Discharge Prescriptions: No Action Pnv No.95/Ferrous Fum/Folic AC [ Multivitamin Tablet] 1 each PO DAILY Discharge Medication List Pnv No.95/Ferrous Fum/Folic AC [ Multivitamin Tablet] 1 each PO DAILY 08/28/19 [History] Follow up Appointment(s)/Referral(s): Bridgett Brink MD [STAFF PHYSICIAN] - 6 Weeks Discharge Disposition: HOME SELF-CARE
== END 2021-01-29 13:30 | disposition home or self-care (01) | DRG 807 ==
LOC: 4FBP 06:10
PROVIDERS: ADMIT Obstetrics & Gynecology; ATTEND Obstetrics & Gynecology
PROC: 10E0XZZ Delivery of Products of Conception, External Approach (ICD-10-PCS; principal; 2021-01-28)
PROC: 0HQ9XZZ Repair Perineum Skin, External Approach (ICD-10-PCS; 2021-01-28)
DX: O24.429 Gestational diabetes mellitus in childbirth, unspecified control (principal); Z37.0 Single live birth; O70.0 First degree perineal laceration during delivery; Z3A.39 39 weeks gestation of pregnancy; Z82.49 Family history of ischemic heart disease and other diseases of the circulatory system; Z90.5 Acquired absence of kidney
CPT/HCPCS: 85025; 86850; 86900; 86901

== ENCOUNTER 2022-11-19 09:24 | Inpatient (IN) | payer OTHER ==
[2022-11-19] MEDS ORDERED: LIDOCAINE 0.5% (PF) 5 MG/ML (50 ML SDV) SQ PRN (09:40)
[2022-11-19] MEDS ORDERED: METHYLERGONOVINE 0.2 MG/ML 1 ML AMP IM PRN (09:40)
[2022-11-19] MEDS ORDERED: miSOPROStoL 200 MCG TAB PO PRN (09:40)
[2022-11-19] MEDS ORDERED: OXYTOCIN 10 UNIT/ML 1 ML VIAL IM PRN (09:40)
[2022-11-19] MEDS ORDERED: TERBUTALINE 1 MG/ML VIAL SQ PRN (09:40)
[2022-11-19] MEDS ORDERED: CARBOPROST TROMETHAMINE 250 MCG/ML 1 ML AMP IM PRN (09:40)
[2022-11-19] MEDS ORDERED: TRANEXAMIC ACID IN NACL,ISO-OS 1,000 MG in EMPTY BAG 1 BAG IV PRN (09:40)
[2022-11-19] MEDS ORDERED: OXYTOCIN 30 UNITS/500 ML NS 30 UNIT in SALINE 1 500ML.BAG IV SCH ×2 (09:45→20:15)
[2022-11-19] MEDS: LACTATED RINGERS 1,000 ML IV SCH ×2 (10:02→13:07)
[2022-11-19] MEDS ORDERED: CALCIUM CARBONATE 500 MG CHEWABLE PO PRN (10:26)
[2022-11-19 10:32] LABS: Basophils % (A) 0 %; Eosinophils # (A) 0.1 k/uL (0-0.7); Eosinophils % (A) 1 %; HCT 37.5 % (34.0-46.0); HGB 12.4 gm/dL (11.4-16.0); Lymphocytes # (A) 1.7 k/uL (1.0-4.8); Lymphocytes % (A) 26 %; MCH 29.6 pg (25.0-35.0); MCHC 33.1 g/dL (31.0-37.0); MCV 89.5 fL (80.0-100.0); Mean Platelet Volume 10.5; Monocytes # (A) 0.3 k/uL (0-1.0); Monocytes % (A) 5 %; Neutrophils # (A) 4.4 k/uL (1.3-7.7); Neutrophils % (A) 67 %; Platelet Count 168 k/uL (150-450); RDW 12.3 % (11.5-15.5); WBC 6.7 k/uL (3.8-10.6)
--- NOTE | 2022-11-19 10:33 | P.HPOB ---
History of Present Illness H&P Date: 11/19/22 Chief Complaint: tachycardia noted in the office This is a 27-year-old female 4 para 2012 EDC 11/26/2022 at 39 weeks gestation. Patient was in the office this morning for her routine obstetrical visit, on the NST for gestational diabetes. Blood sugar this morning 78. After 30-40 minutes tachycardia with sustained in the 180s with no variability. Patient was brought to the hospital for induction of labor with favorable multiparous cervix. Past medical history is significant for gestational diabetes and spontaneous tension pneumothorax in 2008. Past surgical history right nephrectomy 2017, thoracotomy 2008. Current medications vitamins daily, baby aspirin daily. ALLERGIES none known. Family history significant for hypertension. Obstetric history normal spontaneous vaginal deliveries 2, unremarkable area she had a missed AB not requiring surgery. Social history patient has never been a smoker, she is , she denies tobacco alcohol or drug use. history is significant for blood type O+, rubella status immune. VDRL testing, urine culture, gonorrhea and chlamydia cultures, HIV testing, hepatitis B surface antigen all negative. Three-hour GTT consistent with gestational diabetes. Group B strep cultures negative. On exam patient is 5 foot 9 inches, 156 pounds, blood pressure 140/91 on admission. The general physical exam is within normal limits. Cervix is 5 cm dilated, 80% effaced, -1 station, vertex presentation. Artificial amniorrhexis reveals clear fluid. heart tones here in the 150s baseline with accelerations up to the 180s, overall excellent variability. Plan: 39 week intrauterine , tachycardia in the office, nonsustained. Clear fluid. All signs otherwise reassuring. Gestational diabetes with blood sugar this morning 78. Plan: Oxytocin per hospital protocol. Close maternal and surveillance. Analgesic options reviewed. Anticipate normal spontaneous vaginal delivery. Review of Systems Constitutional: Reports as per HPI Past Medical History Additional Past Medical History / Comment(s): Right uretheral stricture, left spontaneous pneumothorax x 3, hx GDM History of Any Multi-Drug Resistant Organisms: None Reported Additional Past Surgical History / Comment(s): Left vats with wedge resection., Right kidney removed Past Anesthesia/Blood Transfusion Reactions: Postoperative Nausea & Vomiting (PONV) Additional Past Anesthesia/Blood Transfusion Reaction / Comment(s): Slow to awaken. Past Psychological History: No Psychological Hx Reported Smoking Status: Never smoker Past Drug Use History: None Reported - Past Family History Mother Family Medical History: No Reported History Father Family Medical History: No Reported History Medications and Allergies Home Medications Medication Instructions Recorded Confirmed Type Pnv No.95/Ferrous Fum/Folic AC 1 each PO DAILY 08/28/19 11/19/22 History [ Multivitamin Tablet] Allergies Allergy/AdvReac Type Severity Reaction Status Date / Time No Known Allergies Allergy Verified 11/19/22 09:39 Exam Intake and Output 11/18/22 11/19/22 11/19/22 22:59 06:59 14:59 Other: Weight 70.76 kg Assessment and Plan Assessment: 39 week intrauterine , gestational diabetes, tachycardia in the office, heart tones reassuring at this time. Plan: Oxytocin per hospital protocol. Continue close maternal and surveillance. Analgesic options reviewed. Anticipate normal spontaneous vaginal delivery. Time with Patient: Less than 30
[2022-11-19] MEDS ORDERED: IBUPROFEN 600 MG TAB PO STA (15:18)
--- NOTE | 2022-11-19 15:31 | P.PROBDLV ---
Vaginal Delivery Note - . Vaginal Delivery Note: This is a 27-year-old 4 para 2012 EDC 11/26/2022 at 39 weeks gestation who was seen in the office and noted to have prolonged tachycardia. She was brought to labor and delivery for induction of labor with favorable cervix, 5 cm 80% -1. Blood pressure on admission 140/91. remarkable for gestational diabetes, blood sugars 78. Please see my dictated history and physical for details. Artificial amniorrhexis revealed clear fluid. Oxytocin was started and titrated per hospital protocol. There were several episodes of decelerations which were corrected with maternal position change, oxygen, IV fluids, and cessation of Pitocin. Patient was to receive an epidural but due to heart tones declined. She became completely dilated at 1457 hrs. and began the second stage of labor at that time. The perineal body was prepped and draped in usual sterile fashion. Infant's head delivered straight occiput posterior, baby restituted accordingly. There was no nuchal cord noted. The left or anterior shoulder was gently delivered from underneath the pubic symphysis at which time the oropharynx, nasopharynx, and external nares were all bulb suctioned. patient was officially delivered of a liveborn female infant at 1511 hours. Umbilical cord was doubly clamped and ligated, she was handed to waiting nurses for evaluation where scores of 7 and 8 at one and 5 minutes respectively were given. Placenta delivered spontaneously, it was inspected and noted to be intact with trivascular cord at 1514 hours. Uterus is then massaged. Careful inspection of the cervix, vagina, perineum, periurethral, and perirectal areas revealed a small first-degree perineal laceration. This was injected with lidocaine and repaired in the usual fashion with a single [id number] suture of 4-0 repeat. Total estimated blood loss 200 mL's. All sponge needle and enhancement counts are correct. weight 3230 g or 7 lbs. 2 oz. Patient and her family are allowed to begin the bonding experience in the LDR.
[2022-11-19] MEDS ORDERED: BENZOCAINE/MENTHOL SPRAY 1 GM/SPRAY AEROSOL TOPICAL PRN (20:06)
[2022-11-19] MEDS ORDERED: HYDROCORTISONE 2.5% RECTAL CREAM 30 GM TUBE RECTAL PRN (20:06)
[2022-11-19] MEDS ORDERED: LANOLIN CREAM 5 GM TUBE TOPICAL PRN (20:06)
[2022-11-19] MEDS ORDERED: ACETAMINOPHEN TAB 325 MG TAB PO PRN (20:06)
[2022-11-19] MEDS ORDERED: diphenhydrAMINE 50 MG CAP PO PRN (20:06)
[2022-11-19] MEDS: SENNOSIDES-DOCUSATE SODIUM 1 EACH TAB PO SCH (20:39)
[2022-11-19] MEDS: IBUPROFEN 600 MG TAB PO PRN (23:30)
[2022-11-20] MEDS ORDERED: SENNOSIDES-DOCUSATE SODIUM 1 EACH TAB PO SCH (08:00)
[2022-11-20] MEDS: IBUPROFEN 600 MG TAB PO PRN (08:04)
[2022-11-20] MEDS: SENNOSIDES-DOCUSATE SODIUM 1 EACH TAB PO SCH (08:04)
--- NOTE | 2022-11-20 08:09 | P.DS ---
Providers Date of admission: 11/19/22 09:36 Expected date of discharge: 11/20/22 Attending physician: Bridgett Brink Primary care physician: Stated None Hospital Course: This is a 27-year-old female 4 para 2012 EDC 11/26/2022 at 39 weeks gestation who was sent over from the office with nonreassuring heart tones for induction of labor and favorable multiparous cervix. [place] strep cultures negative. Please see dictated history and physical for details. Artificial amniorrhexis revealed clear fluid. Oxytocin was started and titrated per hospital protocol. Patient went on to deliver vaginally a liveborn female with scores of 7 and 8 at one and 5 minutes respectively. Infant weighed 7 lbs. 2 oz. or 3230 g. Patient did well with a first-degree perineal laceration easily repaired. Please see dictated delivery note for details. This morning the patient is doing well. She is voiding, ambulating, passing flatus without difficulty. Vital signs are stable and she has remained afebrile. is doing very well. Breast-feeding is going well. Patient is judged to be in excellent condition for discharge home. She will follow-up with me in the office in 6 weeks. I have reminded her no int ercourse, tampons or douching. She will use [id number] Advil or Aleve as needed for pain. She will call with any fevers shakes or chills, foul smelling or copious lochia, with the passage of large blood clots, with any pain not alleviated by [id number] products, or indeed with any concerns. We have discussed contraceptive options and we'll discuss this further in the office. Assessment: Doing well first day Patient Condition at Discharge: Good Plan - Discharge Summary Discharge Rx Participant: No New Discharge Prescriptions: No Action Pnv No.95/Ferrous Fum/Folic AC [ Multivitamin Tablet] 1 each PO DAILY Discharge Medication List Pnv No.95/Ferrous Fum/Folic AC [ Multivitamin Tablet] 1 each PO DAILY 08/28/19 [History] Follow up Appointment(s)/Referral(s): Bridgett Brink MD [STAFF PHYSICIAN] - 6 Weeks Discharge Disposition: HOME SELF-CARE
[2022-11-20 16:16] VITALS: BP 127/81; PULSE 77; RESP 26; TEMP 98.6
== END 2022-11-20 17:00 | disposition home or self-care (01) | DRG 807 ==
LOC: 4FBP 09:36
PROVIDERS: ADMIT Obstetrics & Gynecology; ATTEND Obstetrics & Gynecology
PROC: 10E0XZZ Delivery of Products of Conception, External Approach (ICD-10-PCS; principal; 2022-11-19)
PROC: 0HQ9XZZ Repair Perineum Skin, External Approach (ICD-10-PCS; 2022-11-19)
PROC: 10907ZC Drainage of Amniotic Fluid, Therapeutic from Products of Conception, Via Natural or Artificial Opening (ICD-10-PCS; 2022-11-19)
PROC: 4A0HXCZ Measurement of Products of Conception, Cardiac Rate, External Approach (ICD-10-PCS; 2022-11-19)
DX: O24.429 Gestational diabetes mellitus in childbirth, unspecified control (principal); O76 Abnormality in fetal heart rate and rhythm complicating labor and delivery; Z37.0 Single live birth; O70.0 First degree perineal laceration during delivery; Z3A.39 39 weeks gestation of pregnancy; Z79.82 Long term (current) use of aspirin; Z90.5 Acquired absence of kidney
CPT/HCPCS: 83036; 85025; 86850; 86900; 86901